=== PATIENT | female | born 1945 | race Caucasian/White ===

== ENCOUNTER 2017-12-18 12:56 | Emergency (ER) | payer OTHER ==
[~2017-12-18] VITALS: Ht 157.4 cm; Wt 102.1 kg
[~2017-12-18 12:56] MED LIST: ASPIRIN325 MG PO; AZOPT 1% 10 ML5 ML INTRAOC; BENADRYL25 MG PO; CRESTOR20 MG PO; GLUCOPHAGE500 MG PO; HYDR12.5C PO; NEURONTIN600 MG PO; PHENERGAN25 M1 PO; PLAVIX75 MG PO; VASOTEC5 MG PO; VICODIN 5/500 505 MG PO; XALATAN 0.005%2.5 ML INTRAOC; XANAX0.25 MG PO
[2017-12-18 12:58] VITALS: BP 132/66
[2017-12-18] MEDS ORDERED: CEPHALEXIN500 M1 PO (13:34)
== END 2017-12-18 14:12 | disposition home or self-care (01) ==
LOC: ED 12:56
DX: T81.4XXA Infection following a procedure, initial encounter (principal); Z88.1 Allergy status to other antibiotic agents; Z91.041 Radiographic dye allergy status; Z91.040 Latex allergy status; Z91.013 Allergy to seafood; Z91.018 Allergy to other foods; Z79.899 Other long term (current) drug therapy; Z79.82 Long term (current) use of aspirin

== ENCOUNTER 2019-07-08 12:41 | Emergency (ER) | payer OTHER ==
[~2019-07-08] VITALS: Ht 157.4 cm; Wt 99.8 kg
[~2019-07-08 12:41] MED LIST changes: +CEPHALEXIN500 M1 PO; +OMNICEF300 MG PO; +PYRIDIUM100 MG PO
[2019-07-08] MEDS ORDERED: ESCITALOPRAM OX20 MG PO (12:53)
[2019-07-08 12:54] LABS: BILIRUBIN NEGATIVE (NEGATIVE); BLOOD 3+ (NEGATIVE); CLARITY CLOUDY (CLEAR); COLOR YELLOW (YELLOW); GLUCOSE NEGATIVE (NEGATIVE); KETONE NEGATIVE (NEGATIVE); LEUKO ESTERASE 3+ (NEGATIVE); NITRITE NEGATIVE (NEGATIVE); PH 6.5 (5.0-9.0); SPECIFIC GRAVITY 1.015 (1.005-1.030); UROBILINOGEN 0.2 E.U./dl (0.2-1.0)
[2019-07-08] MEDS ORDERED: PANTOPRAZOLE SO40 MG PO (12:54)
[2019-07-08] MEDS ORDERED: Lopressor25 MG PO (12:54)
[2019-07-08] MEDS ORDERED: EFFIENT10 M1 PO (12:55)
[2019-07-08] MEDS ORDERED: CLARITIN10 MG PO (12:56)
[2019-07-08] MEDS ORDERED: DILANTIN100 MG PO (12:56)
[2019-07-08 13:07] LABS: RBC TNTC rbc/hpf (0-2); WBC TNTC wbc/hpf (0-5)
[2019-07-08 13:09] LABS: BACTERIA 2+
[2019-07-08] MEDS ORDERED: PYRIDIUM200 M1 PO (13:22)
[2019-07-08] MEDS ORDERED: SEPTDS PO (13:22)
[2019-07-08 14:11] VITALS: BP 152/57
== END 2019-07-08 14:57 | disposition home or self-care (01) ==
LOC: ED 12:41
PROVIDERS: Physician Assistant
DX: N39.0 Urinary tract infection, site not specified (principal); I10 Essential (primary) hypertension; I73.9 Peripheral vascular disease, unspecified; K21.9 Gastro-esophageal reflux disease without esophagitis; Z91.041 Radiographic dye allergy status; Z88.1 Allergy status to other antibiotic agents; Z91.040 Latex allergy status; Z91.018 Allergy to other foods; Z91.013 Allergy to seafood; Z79.899 Other long term (current) drug therapy; Z79.82 Long term (current) use of aspirin; Z90.710 Acquired absence of both cervix and uterus

== ENCOUNTER → 2020-10-11 | Outpatient (CLI) | payer OTHER ==
[~2020-10-11] MED LIST changes: +CLARITIN10 MG PO; +DILANTIN100 MG PO; +EFFIENT10 M1 PO; +ESCITALOPRAM OX20 MG PO; +Lopressor25 MG PO; +PANTOPRAZOLE SO40 MG PO; +PYRIDIUM200 M1 PO; +SEPTDS PO
== END | disposition home or self-care (01) ==
LOC: COVID19 13:33
PROVIDERS: ATTEND Surgery Vascular Surgery
DX: Z01.812 Encounter for preprocedural laboratory examination (principal); Z20.822 Contact with and (suspected) exposure to COVID-19

== ENCOUNTER → 2020-10-21 | Outpatient (CLI) | payer OTHER | END | disposition home or self-care (01) | LOC: COVID19 14:11 | PROVIDERS: ATTEND Internal Medicine Endocrinology, Diabetes & Metabolism | DX: Z01.812 Encounter for preprocedural laboratory examination (principal); Z20.822 Contact with and (suspected) exposure to COVID-19 ==

== ENCOUNTER 2022-01-25 10:09 | Inpatient (IN) | payer OTHER ==
[~2022-01-25] VITALS: Ht 157.4 cm; Wt 98.2 kg
[~2022-01-25 10:09] MED LIST changes: -ASPIRIN325 MG PO; +VAZALORE81 MG PO
[2022-01-25 10:17] VITALS: BP 156/91; BP 73/47
[2022-01-25 10:39] LABS: BASO # 0.1 10*3/uL (0.0-0.1); BASO % 0.5 % (0.0-1.0); EOS # 0.1 10*3/uL (0.0-0.4); EOS % 1.2 % (1.0-4.0); HEMATOCRIT 43.1 % (37.0-47.0); LYMPH # 1.5 10*3/uL (1.3-4.4); LYMPH % 13.4 % (27.0-41.0); MEAN CELL VOLUME 86.9 fl (81.0-99.0); MEAN CORPUSCULAR HGB 26.6 pg (27.0-31.0); MEAN CORPUSCULAR HGB CONC 30.6 g/dl (33.0-37.0); MEAN PLATELET VOLUME 10.6 fl (9.6-12.3); MONO # 0.7 10*3/uL (0.1-1.0); MONO % 5.9 % (3.0-9.0); NEUT # 8.6 10*3/uL (2.3-7.9); NEUT % 78.8 % (47.0-73.0); PLATELET COUNT AUTOMATED 323 10*3/uL (130-400); RED BLOOD COUNT 4.96 10*6/uL (4.10-5.10)
[2022-01-25 10:50] LABS: ACT PARTIAL THROMBO TIME 42.2 SECONDS (20.0-32.1)
[2022-01-25 10:55] LABS: ALKALINE PHOSPHATASE 93 U/L (45-117); BUN 12 mg/dl (7-24); CHLORIDE 108 mmol/L (98-107); CREATININE 0.85 mg/dL (0.55-1.02); SGOT/AST 24 IU/L (3-35); SGPT/ALT 22 U/L (12-78); SODIUM 140 mmol/L (136-145); TOTAL PROTEIN 7.3 gm/dL (6.4-8.2)
[2022-01-25 12:56] VITALS: BP 152/60
[2022-01-25 14:07] VITALS: BP 205/89
[2022-01-25 15:30] VITALS: BP 158/61
[2022-01-25 17:20] VITALS: BP 188/83
[2022-01-25 20:00] VITALS: BP 192/78
[2022-01-26] VITALS: BP 121/81
[2022-01-26 05:41] LABS: ALKALINE PHOSPHATASE 101 U/L (45-117); BUN 9 mg/dl (7-24); CHLORIDE 106 mmol/L (98-107); CHOLESTEROL 162 mg/dL (<200); CREATININE 0.83 mg/dL (0.55-1.02); POTASSIUM 4.3 mmol/L (3.5-5.1); SGOT/AST 117 IU/L (3-35); SGPT/ALT 80 U/L (12-78); SODIUM 137 mmol/L (136-145); TOTAL PROTEIN 7.2 gm/dL (6.4-8.2); TRIGLYCERIDES 121 mg/dl (<150)
[2022-01-26 05:42] LABS: FREE T4 1.02 ng/dl (0.76-1.46); LDL CHOLESTEROL 74 mg/dL (9-159)
[2022-01-26 05:47] LABS: THYROID STIM HORMONE (HS) 0.834 uIU/ml (0.358-4.75)
[2022-01-26 06:31] LABS: HEMATOCRIT 45.7 % (37.0-47.0); MEAN CELL VOLUME 86.9 fl (81.0-99.0); MEAN CORPUSCULAR HGB 26.6 pg (27.0-31.0); MEAN CORPUSCULAR HGB CONC 30.6 g/dl (33.0-37.0); MEAN PLATELET VOLUME 10.9 fl (9.6-12.3); PLATELET COUNT AUTOMATED 391 10*3/uL (130-400); RED BLOOD COUNT 5.26 10*6/uL (4.10-5.10); WHITE BLOOD COUNT 23.3 10*3/uL (4.8-10.8)
[2022-01-26 06:49] LABS: MANUAL DIFF REFLEX YES
[2022-01-26 07:21] LABS: PLATELET SUFFICIENCY NORMAL (NORMAL); TOTAL CELLS COUNTED 100 #CELLS
[2022-01-26 08:00] VITALS: BP 157/72
[2022-01-26 08:08] LABS: VITAMIN D, 25-HYDROXY 16.4 ng/mL (30-100)
[2022-01-26 12:00] VITALS: BP 153/68
[2022-01-26 12:39] LABS: BILIRUBIN Negative (Negative); BLOOD Negative (Negative); CLARITY Cloudy (Clear); COLOR Yellow (Yellow); GLUCOSE Negative (Negative); KETONE Trace (Negative); LEUKO ESTERASE Negative (Negative); NITRITE Negative (Negative); PH 5.5 (4.5-8.0)
[2022-01-26 12:57] LABS: BACTERIA 4+
[2022-01-26 16:00] VITALS: BP 141/57
[2022-01-26 20:00] VITALS: BP 91/52
[2022-01-27] VITALS: BP 95/55
[2022-01-27 05:45] LABS: BUN 13 mg/dl (7-24); CHLORIDE 105 mmol/L (98-107); CREATININE 0.64 mg/dL (0.55-1.02); POTASSIUM 3.8 mmol/L (3.5-5.1); SODIUM 138 mmol/L (136-145)
[2022-01-27 06:34] LABS: HEMATOCRIT 43.1 % (37.0-47.0); MEAN CELL VOLUME 87.6 fl (81.0-99.0); MEAN CORPUSCULAR HGB 26.4 pg (27.0-31.0); MEAN CORPUSCULAR HGB CONC 30.2 g/dl (33.0-37.0); MEAN PLATELET VOLUME 11.2 fl (9.6-12.3); PLATELET COUNT AUTOMATED 324 10*3/uL (130-400); RED BLOOD COUNT 4.92 10*6/uL (4.10-5.10); RED CELL DISTRI WIDTH 17.2 % (0-14.5); WHITE BLOOD COUNT 25.6 10*3/uL (4.8-10.8)
[2022-01-27 06:39] LABS: MANUAL DIFF REFLEX YES
[2022-01-27 07:49] LABS: BURR CELLS FEW; PLATELET SUFFICIENCY NORMAL (NORMAL); POLYCHROMASIA SLIGHT; TOTAL CELLS COUNTED 100 #CELLS
[2022-01-27 08:00] VITALS: BP 112/59
[2022-01-27 12:00] VITALS: BP 129/59
[2022-01-27 16:00] VITALS: BP 119/83
[2022-01-27 20:00] VITALS: BP 116/48
[2022-01-28] VITALS (8 sets, daily range): BP systolic 94–129; BP diastolic 49–83
[2022-01-28 06:11] LABS: BUN 18 mg/dl (7-24); CHLORIDE 102 mmol/L (98-107); CREATININE 0.74 mg/dL (0.55-1.02); POTASSIUM 3.2 mmol/L (3.5-5.1); SGOT/AST 37 IU/L (3-35); SGPT/ALT 39 U/L (12-78); SODIUM 136 mmol/L (136-145); TOTAL PROTEIN 6.8 gm/dL (6.4-8.2)
[2022-01-28 06:12] LABS: ALKALINE PHOSPHATASE 89 U/L (45-117)
[2022-01-28 06:22] LABS: BASO % 0.2 % (0.0-1.0); EOS # 0.1 10*3/uL (0.0-0.4); EOS % 0.3 % (1.0-4.0); HEMATOCRIT 40.9 % (37.0-47.0); LYMPH # 1.2 10*3/uL (1.3-4.4); LYMPH % 6.1 % (27.0-41.0); MEAN CELL VOLUME 88.9 fl (81.0-99.0); MEAN CORPUSCULAR HGB 26.7 pg (27.0-31.0); MEAN CORPUSCULAR HGB CONC 30.1 g/dl (33.0-37.0); MEAN PLATELET VOLUME 10.6 fl (9.6-12.3); MONO # 1.2 10*3/uL (0.1-1.0); MONO % 6.6 % (3.0-9.0); NEUT # 16.3 10*3/uL (2.3-7.9); NEUT % 86.3 % (47.0-73.0); PLATELET COUNT AUTOMATED 275 10*3/uL (130-400); WHITE BLOOD COUNT 18.9 10*3/uL (4.8-10.8)
[2022-01-28 11:31] LABS: ACT PARTIAL THROMBO TIME 30.3 SECONDS (20.0-32.1)
[2022-01-29] VITALS: BP 92/37
[2022-01-29 03:20] VITALS: BP 122/37
[2022-01-29 05:36] VITALS: BP 120/39
[2022-01-29 06:03] LABS: CREATININE 1.2 mg/dL (0.55-1.02); POTASSIUM 3.5 mmol/L (3.5-5.1); TOTAL PROTEIN 6.1 gm/dL (6.4-8.2)
[2022-01-29 06:10] LABS: BASO % 0.2 % (0.0-1.0); EOS # 0.1 10*3/uL (0.0-0.4); EOS % 0.5 % (1.0-4.0); HEMATOCRIT 35.6 % (37.0-47.0); LYMPH # 1.4 10*3/uL (1.3-4.4); LYMPH % 8.2 % (27.0-41.0); MEAN CELL VOLUME 89.2 fl (81.0-99.0); MEAN CORPUSCULAR HGB 27.1 pg (27.0-31.0); MEAN CORPUSCULAR HGB CONC 30.3 g/dl (33.0-37.0); MONO # 1.1 10*3/uL (0.1-1.0); MONO % 6.6 % (3.0-9.0); NEUT # 14.5 10*3/uL (2.3-7.9); PLATELET COUNT AUTOMATED 280 10*3/uL (130-400); RED BLOOD COUNT 3.99 10*6/uL (4.10-5.10); RED CELL DISTRI WIDTH 16.9 % (0-14.5); WHITE BLOOD COUNT 17.3 10*3/uL (4.8-10.8)
[2022-01-29 06:27] LABS: ACT PARTIAL THROMBO TIME 34.1 SECONDS (20.0-32.1)
[2022-01-29 08:00] VITALS: BP 120/35
[2022-01-29 13:59] LABS: ACT PARTIAL THROMBO TIME 31.9 SECONDS (20.0-32.1)
[2022-01-29 16:00] VITALS: BP 142/45
[2022-01-29 20:00] VITALS: BP 147/51
[2022-01-30] VITALS: BP 145/57
[2022-01-30 06:25] LABS: ALKALINE PHOSPHATASE 117 U/L (45-117); BASO % 0.2 % (0.0-1.0); CHLORIDE 106 mmol/L (98-107); CREATININE 0.47 mg/dL (0.55-1.02); EOS # 0.2 10*3/uL (0.0-0.4); EOS % 1.3 % (1.0-4.0); HEMATOCRIT 34.5 % (37.0-47.0); LYMPH # 0.9 10*3/uL (1.3-4.4); LYMPH % 7.2 % (27.0-41.0); MEAN CORPUSCULAR HGB 26.5 pg (27.0-31.0); MEAN CORPUSCULAR HGB CONC 30.1 g/dl (33.0-37.0); MEAN PLATELET VOLUME 10.6 fl (9.6-12.3); MONO # 0.9 10*3/uL (0.1-1.0); MONO % 7.2 % (3.0-9.0); NEUT # 10.6 10*3/uL (2.3-7.9); NEUT % 83.6 % (47.0-73.0); PLATELET COUNT AUTOMATED 286 10*3/uL (130-400); POTASSIUM 2.9 mmol/L (3.5-5.1); RED BLOOD COUNT 3.92 10*6/uL (4.10-5.10); RED CELL DISTRI WIDTH 17.1 % (0-14.5); SGOT/AST 25 IU/L (3-35); SGPT/ALT 24 U/L (12-78); SODIUM 143 mmol/L (136-145); TOTAL PROTEIN 6.3 gm/dL (6.4-8.2); WHITE BLOOD COUNT 12.7 10*3/uL (4.8-10.8)
[2022-01-30 06:34] LABS: BUN 15 mg/dl (7-24)
[2022-01-30 08:00] VITALS: BP 142/57
[2022-01-30 12:00] VITALS: BP 150/50
[2022-01-30 15:07] LABS: ACID FAST SPEC PROCESSING Direct Inoculation (.)
[2022-01-30 16:00] VITALS: BP 116/49
[2022-01-30 20:00] VITALS: BP 96/56
[2022-01-31] VITALS: BP 150/53
[2022-01-31 06:39] LABS: BASO % 0.4 % (0.0-1.0); EOS # 0.3 10*3/uL (0.0-0.4); EOS % 2.4 % (1.0-4.0); HEMATOCRIT 33.7 % (37.0-47.0); LYMPH # 1.3 10*3/uL (1.3-4.4); LYMPH % 12.2 % (27.0-41.0); MEAN CELL VOLUME 88.5 fl (81.0-99.0); MEAN CORPUSCULAR HGB 26.8 pg (27.0-31.0); MEAN CORPUSCULAR HGB CONC 30.3 g/dl (33.0-37.0); MEAN PLATELET VOLUME 10.2 fl (9.6-12.3); MONO # 0.8 10*3/uL (0.1-1.0); MONO % 8.1 % (3.0-9.0); NEUT # 7.9 10*3/uL (2.3-7.9); NEUT % 76.3 % (47.0-73.0); PLATELET COUNT AUTOMATED 285 10*3/uL (130-400); RED BLOOD COUNT 3.81 10*6/uL (4.10-5.10); RED CELL DISTRI WIDTH 17.2 % (0-14.5); WHITE BLOOD COUNT 10.3 10*3/uL (4.8-10.8)
[2022-01-31 06:54] LABS: BUN 9 mg/dl (7-24); CHLORIDE 107 mmol/L (98-107); CREATININE 0.41 mg/dL (0.55-1.02); SODIUM 141 mmol/L (136-145)
[2022-01-31 08:00] VITALS: BP 155/40
[2022-01-31 12:00] VITALS: BP 124/47
[2022-01-31 16:00] VITALS: BP 149/48
[2022-01-31] MEDS ORDERED: METRONIDAZOLE500 M1 PO (16:37)
[2022-01-31] MEDS ORDERED: CEFEPIME1 GM/50 ML IV ×2 (16:37)
[2022-01-31] MEDS ORDERED: VANCO 1 GR1 GM/250 M IV ×2 (16:37)
[2022-01-31 20:00] VITALS: BP 155/51
[2022-02-01] VITALS: BP 138/46
[2022-02-01 06:54] LABS: BASO % 0.3 % (0.0-1.0); EOS # 0.2 10*3/uL (0.0-0.4); EOS % 2.2 % (1.0-4.0); HEMATOCRIT 34.1 % (37.0-47.0); LYMPH # 1.3 10*3/uL (1.3-4.4); LYMPH % 12.2 % (27.0-41.0); MEAN CELL VOLUME 85.9 fl (81.0-99.0); MEAN CORPUSCULAR HGB 26.4 pg (27.0-31.0); MEAN CORPUSCULAR HGB CONC 30.8 g/dl (33.0-37.0); MEAN PLATELET VOLUME 10.2 fl (9.6-12.3); MONO # 0.8 10*3/uL (0.1-1.0); MONO % 7.7 % (3.0-9.0); NEUT # 8.3 10*3/uL (2.3-7.9); NEUT % 76.6 % (47.0-73.0); PLATELET COUNT AUTOMATED 296 10*3/uL (130-400); RED BLOOD COUNT 3.97 10*6/uL (4.10-5.10); RED CELL DISTRI WIDTH 17.2 % (0-14.5); WHITE BLOOD COUNT 10.8 10*3/uL (4.8-10.8)
[2022-02-01 07:18] LABS: BUN 6 mg/dl (7-24); CHLORIDE 107 mmol/L (98-107); CREATININE 0.44 mg/dL (0.55-1.02); SODIUM 141 mmol/L (136-145)
[2022-02-01 08:00] VITALS: BP 120/46
[2022-02-01 12:00] VITALS: BP 121/54
[2022-02-01 16:00] VITALS: BP 142/43
[2022-02-01 20:00] VITALS: BP 142/48
[2022-02-02 06:29] LABS: CHLORIDE 104 mmol/L (98-107); POTASSIUM 2.6 mmol/L (3.5-5.1); SODIUM 142 mmol/L (136-145)
[2022-02-02 06:36] LABS: BUN 7 mg/dl (7-24); CREATININE 0.34 mg/dL (0.55-1.02)
[2022-02-02 08:00] VITALS: BP 160/50
[2022-02-02 12:00] VITALS: BP 129/49
[2022-02-02 16:00] VITALS: BP 124/46
[2022-02-02 20:00] VITALS: BP 118/41
[2022-02-03] VITALS: BP 120/48
[2022-02-03 08:00] VITALS: BP 165/91
[2022-02-03 09:42] LABS: BUN 4 mg/dl (7-24); CHLORIDE 104 mmol/L (98-107); CREATININE 0.39 mg/dL (0.55-1.02); POTASSIUM 2.7 mmol/L (3.5-5.1); SODIUM 141 mmol/L (136-145)
[2022-02-03 12:00] VITALS: BP 146/43
[2022-02-03] MEDS ORDERED: XARE20MG PO (12:05)
[2022-02-03] MEDS ORDERED: METOPROLOL SUCC50 M1 PO (12:05)
[2022-02-03] MEDS ORDERED: NYAMYC15 GM T ×2 (12:05)
[2022-02-03] MEDS ORDERED: HYDROCODONE-AC1 EAC1 PO (12:05)
[2022-02-03] MEDS ORDERED: LISINOPRIL10 M1 PO (12:05)
[2022-02-03 16:00] VITALS: BP 143/45
[2022-02-10] MEDS ORDERED: ASPIRIN81 M1 PO (01:04)
[2022-02-10] MEDS ORDERED: NYSTOP60 GM T (01:07)
[2022-02-10] MEDS ORDERED: CEFEPIME HYDROCH2 GM IJ (01:08)
[2022-02-10] MEDS ORDERED: VANCOMYCIN1 GM/2002 IV (01:10)
[2022-02-10] MEDS ORDERED: HYDROCODONE-AC1 EAC1 PO (01:13)
== END 2022-02-03 20:08 | disposition home health service (06) | DRG 281 ==
LOC: ED 10:09 → EDHOLD 14:51 → 5E 14:51
PROVIDERS: Internal Medicine; Occupational Therapist; Student in an Organized Health Care Education/Training Program; ADMIT Internal Medicine; ATTEND Internal Medicine
PROC: 0F943ZZ Drainage of Gallbladder, Percutaneous Approach (ICD-10-PCS; principal; 2022-01-29)
PROC: 4A02XM4 Measurement of Cardiac Total Activity, External Approach (ICD-10-PCS; 2022-01-29)
PROC: 3E033HZ Introduction of Radioactive Substance into Peripheral Vein, Percutaneous Approach (ICD-10-PCS; 2022-01-29)
DX: I21.4 Non-ST elevation (NSTEMI) myocardial infarction (principal); E44.0 Moderate protein-calorie malnutrition; I16.1 Hypertensive emergency; K81.0 Acute cholecystitis; K27.9 Peptic ulcer, site unspecified, unspecified as acute or chronic, without hemorrhage or perforation; K21.9 Gastro-esophageal reflux disease without esophagitis; F32.9 Major depressive disorder, single episode, unspecified; G40.909 Epilepsy, unspecified, not intractable, without status epilepticus; I73.9 Peripheral vascular disease, unspecified; E78.00 Pure hypercholesterolemia, unspecified; I10 Essential (primary) hypertension; E87.8 Other disorders of electrolyte and fluid balance, not elsewhere classified; R73.9 Hyperglycemia, unspecified; E66.9 Obesity, unspecified; E27.8 Other specified disorders of adrenal gland; I25.10 Atherosclerotic heart disease of native coronary artery without angina pectoris; I48.91 Unspecified atrial fibrillation; I34.0 Nonrheumatic mitral (valve) insufficiency; Z88.2 Allergy status to sulfonamides; Z88.8 Allergy status to other drugs, medicaments and biological substances; Z91.041 Radiographic dye allergy status; Z91.040 Latex allergy status; Z90.710 Acquired absence of both cervix and uterus; Z82.3 Family history of stroke; Z82.49 Family history of ischemic heart disease and other diseases of the circulatory system; Z89.612 Acquired absence of left leg above knee; Z68.39 Body mass index [BMI] 39.0-39.9, adult

== ENCOUNTER 2025-01-29 06:15 | Emergency (ER) | payer OTHER ==
[~2025-01-29 06:15] MED LIST changes: +ACETAMINOPHEN500 M4 PO; +ASPIRIN81 M1 PO; +CEFEPIME HYDROCH2 GM IJ; +CEFEPIME1 GM/50 ML IV; +CETIRIZINE10 MG PO; +GABAPENTIN800 MG PO; +HYDROCODONE-AC1 EAC1 PO; +KLOR-CON M1010 ME1 PO; +LISINOPRIL10 M1 PO; +METOPROLOL SUCC50 M1 PO; +METRONIDAZOLE500 M1 PO; +MYRBETRIQ25 M1 PO; +NATURE'S BLEND F1 MG PO; +NYAMYC15 GM T; +NYSTOP60 GM T; +PREDNISONE10 MG PO; +TIZANIDINE HCL4 MG PO; +VANCO 1 GR1 GM/250 M IV; +VANCOMYCIN HCL250 MG PO; +VANCOMYCIN1 GM/2002 IV; +VITAMIN D3125 MCG PO; +XARE20MG PO
[2025-01-29 06:26] VITALS: BP 98/76
[2025-01-29] MEDS ORDERED: Acetaminophen/Oxycodone 5 MG/325 MG TABLET PO ONE ×2 (07:45→11:05)
== END 2025-01-29 11:48 | disposition home or self-care (01) ==
LOC: ED 06:15
DX: M25.561 Pain in right knee (principal); M25.571 Pain in right ankle and joints of right foot; W19.XXXA Unspecified fall, initial encounter